=== PATIENT | male | born 2000 | race African-American/Black ===

== ENCOUNTER 2023-06-17 06:16 | Inpatient (IN) | payer BC, OTHER, SELFPAY ==
[2023-06-17] MEDS ORDERED: LEVALBUTEROL 1.25 MG/3 ML NEB ONE (06:45)
[2023-06-17] MEDS ORDERED: IPRATROPIUM BROM 0.5MG/2.5ML ONE (06:45)
[2023-06-17] MEDS ORDERED: PIPERACIL/TAZO 3.375 GM VIAL IV ONE (06:45)
[2023-06-17] MEDS ORDERED: NA CHLORIDE 0.9% 2,000 ML ONE (06:45)
[2023-06-17] MEDS ORDERED: NA CHLORIDE 0.9% 100 ML ONE (06:45)
[2023-06-17 06:57] LABS: Absolute Lymphocytes (CBC) 2.3 K/uL (0.7-4.9); Hematocrit 47.7 % (39.6-49.0); Lymphocytes % 29.4 % (15.3-44.8); MPV 8.5 fL (7.6-11.3); Platelets 184 thou/uL (152-406); RBC Red Blood Cell Count 5.81 M/uL (4.33-5.43)
[2023-06-17 07:01] LABS: Protime INR 1.05
--- NOTE | 2023-06-17 07:09 | EDPHYS ---
Physician Documentation [facility] Name: Darling Pang Age: 23 yrs Sex: Male : 2000 Arrival Date: 06/17/2023 Time: 06:16 Bed 3 Private MD: ED Physician Cory Siu HPI: 06/17 06:56 This 23 yrs old Black Male presents to ER via EMS with complaints of od, unresponsive, jimi aspiration. 06:56 The patient has shortness of breath at rest, with light activity. Onset: The jimi symptoms/episode began/occurred just prior to arrival. Duration: The symptoms are continuous, and are steadily getting worse. The patient's shortness of breath is aggravated by coughing. The patient presents to the emergency department with a possible overdose, found unresponsive, narcan. Context: Method: unk, Time: the patient's OD/poisoning occurred at an unknown time, Extent: unknown. Associated signs and symptoms: Pertinent positives: shortness of breath. Severity of symptoms: in the emergency department the symptoms have improved moderately. percocets , aspiration. The patient presents with confusion, disorientation, trouble concentrating. Historical: - Allergies: 06:27 No Known Allergies; lg3 - Home Meds: 06:27 None [Active]; lg3 - PMHx: 06:27 None; lg3 - PSHx: 06:27 None; lg3 - Immunization history:: Adult Immunizations up to date. - Social history:: Smoking status: Patient denies any tobacco usage or history of. Patient uses alcohol, occasionally. Patient/guardian denies using street drugs. - Family history:: not pertinent. ROS: 06:56 Constitutional: Negative for fever, chills, and weight loss, Eyes: Negative for injury, jimi pain, redness, and discharge, ENT: Negative for injury, pain, and discharge, Neck: Negative for injury, pain, and swelling, Cardiovascular: Negative for chest pain, palpitations, and edema, Abdomen/GI: Negative for abdominal pain, nausea, vomiting, diarrhea, and constipation, Back: Negative for injury and pain, : Negative for injury, bleeding, discharge, and swelling, MS/Extremity: Negative for injury and deformity, Skin: Negative for injury, rash, and discoloration, Neuro: Negative for headache, weakness, numbness, tingling, and seizure. 06:56 Respiratory: Positive for cough, dyspnea on exertion, pleurisy, shortness of breath. Exam: 06:56 Constitutional: This is a well developed, well nourished patient who is awake, alert, jimi and in no acute distress. Head/Face: Normocephalic, atraumatic. Eyes: Pupils equal round and reactive to light, extra-ocular motions intact. Lids and lashes normal. Conjunctiva and sclera are non-icteric and not injected. Cornea within normal limits. Periorbital areas with no swelling, redness, or edema. ENT: Nares patent. No nasal discharge, no septal abnormalities noted. Tympanic membranes are normal and external auditory canals are clear. Oropharynx with no redness, swelling, or masses, exudates, or evidence of obstruction, uvula midline. Mucous membranes moist. Neck: Trachea midline, no thyromegaly or masses palpated, and no cervical lymphadenopathy. Supple, full range of motion without nuchal rigidity, or vertebral point tenderness. No Meningismus. Chest/axilla: Normal chest wall appearance and motion. Nontender with no deformity. No lesions are appreciated. Cardiovascular: Regular rate and rhythm with a normal S1 and S2. No gallops, murmurs, or rubs. Normal PMI, no JVD. No pulse deficits. Abdomen/GI: Soft, non-tender, with normal bowel sounds. No distension or tympany. No guarding or rebound. No evidence of tenderness throughout. Back: No spinal tenderness. No costovertebral tenderness. Full range of motion. Male : Normal genitalia with no discharge or lesions. Skin: Warm, dry with normal turgor. Normal color with no rashes, no lesions, and no evidence of cellulitis. MS/ Extremity: Pulses equal, no cyanosis. Neurovascular intact. Full, normal range of motion. Neuro: Awake and alert, GCS 15, oriented to person, place, time, and situation. Cranial nerves II-XII grossly intact. Motor strength 5/5 in all extremities. Sensory grossly intact. Cerebellar exam normal. Normal gait. Psych: Awake, alert, with orientation to person, place and time. Behavior, mood, and affect are within normal limits. 06:56 ECG was reviewed by the Attending Physician. 06:56 Respiratory: the patient does not display signs of respiratory distress, Respirations: normal, no acute changes, Breath sounds: decreased breath sounds, rhonchi, that are moderate, are heard in the left posterior upper lobe, right posterior upper lobe and left posterior lower lobe. Vital Signs: 06:19 BP 133 / 94; Pulse 107; Resp 18; Temp 97.4(O); Pulse Ox 82% on R/A; Weight 77.11 kg lg3 (R); Height 5 ft. 8 in. (R); 06:57 BP 134 / 90; Pulse 102; Resp 16; Pulse Ox 99% on Nebulizer Mask; kd3 07:31 Pulse 115; Resp 20; Temp 98.6(O); Pulse Ox 90% on 4 lpm NC; Pain 8/10; ss 07:41 Pulse Ox 95% on 4 lpm NC; ss 06:19 Body Mass Index 25.85 (77.11 kg, 172.72 cm) lg3 07:31 Pain Scale: Adult ss MDM: 06:22 Patient medically screened. [facility] 07:03 Antibiotic administration: zosyn. Differential diagnosis: Ingestion/exposure to jimi percocets hypoglycemia, closed head injury. Differential Diagnosis altered mental status, sepsis, flu. Differential Diagnosis: CVA, electrolyte abnormality, alcohol intoxication, hypoglycemia, intracranial bleed, overdose. Immunization status:. Data reviewed: vital signs, nurses notes, EMS record, lab test result(s), EKG, radiologic studies, plain films. Consideration of Admission/Observation Patient was admitted/placed on observation. Escalation of care including admission/observation considered. I considered the following discharge prescriptions or medication management in the emergency department Medications were administered in the Emergency Department. See MAR. Independent interpretation of the following test(s) in the Emergency Department EKG: See my EKG interpretation above. Test considered but Not performed: CT: no ct chest. Historians other than the Patient: EMS: ems well informed. Care significantly affected by the following chronic conditions: substance abuse. 06/17 06:24 Order name: Acetaminophen; Complete Time: 07:51 jimi 06/17 06:24 Order name: Basic Metabolic Panel; Complete Time: 07:51 jimi 06/17 06:24 Order name: CBC with Diff; Complete Time: 07:51 jimi 06/17 06:24 Order name: ETOH Level; Complete Time: 07: jimi 06/17 06:24 Order name: Hepatic Function; Complete Time: 07:51 jimi 06/17 06:24 Order name: PT-INR; Complete Time: 07:51 [facility] 06/17 06:24 Order name: Ptt, Activated; Complete Time: 07:51 [facility] 06/17 06:24 Order name: Salicylate; Complete Time: 07:51 [facility] 06/17 06:24 Order name: Urinalysis w/ reflexes 06/17 06:24 Order name: Urine Drug Screen 06/17 06:24 Order name: Blood Culture Adult (2) 06/17 06:24 Order name: Lactate w/ 2H reflex if indic.; Complete Time: 07:51 [facility] 06/17 07:19 Order name: CBC with Automated Diff EDMS 06/17 07:19 Order name: CBC with Automated Diff EDMS 06/17 07:19 Order name: Comprehensive Metabolic Panel EDMS 06/17 07:19 Order name: Comprehensive Metabolic Panel EDMS 06/17 07:20 Order name: Procalcitonin EDMS 06/17 07:20 Order name: CBC with Automated Diff EDMS 06/17 12:37 Order name: Lactate Sepsis 2 HR Follow-up EDMS 06/17 06:24 Order name: Chest Single View XRAY; Complete Time: 07:51 [facility] 06/17 06:52 Order name: CT Head Brain wo Cont; Complete Time: 07:51 [facility] 06/17 09:52 Order name: CT EDMS 06/17 06:24 Order name: EKG; Complete Time: 06:24 [facility] 06/17 07:19 Order name: Regular EDMS 06/17 06:24 Order name: EKG - Nurse/Tech; Complete Time: 06:50 [facility] 06/17 06:24 Order name: IV Saline Lock; Complete Time: 06:39 [facility] 06/17 06:24 Order name: Labs collected and sent; Complete Time: 06:39 [facility] 06/17 06:24 Order name: Suicide Screening ([place]); Complete Time: 06:39 [facility] 06/17 06:51 Order name: Misc. Order: hob at 60; Complete Time: 06:56 [facility] EC:56 Rate is 92 beats/min. Rhythm is regular. QRS [place] is Normal. [place] interval is normal. QRS jimi interval is normal. QT interval is normal. No Q waves. T waves are Normal. No ST changes noted. Clinical impression: NSR w/ Non-specific ST/T Changes. Interpreted by me. Reviewed by me. Administered Medications: 06:49 Drug: Levalbuterol Inhalation 1.25 mg Route: Inhalation; lg3 06:49 Drug: Ipratropium Inhalation Aerosol 0.5 mg Route: Inhalation; lg3 06:49 Drug: NS 0.9% IV 1000 ml Route: IV; Rate: 1 bolus; Site: left antecubital; lg3 06:50 Drug: NS 0.9% IV 1000 ml Route: IV; Rate: 1 bolus; Site: left antecubital; lg3 06:50 Drug: Piperacillin-Tazobactam IVPB 3.375 grams Route: IVPB; Infused Over: 60 mins; lg3 Site: left antecubital; 08:14 Drug: Potassium PO Effervescent Tablet 25 mEq Route: PO; Disposition Summary: 06/17/23 07:09 Hospitalization Ordered Hospitalization Status: Inpatient Admission jimi Provider: Ladonna Lopez cha Location: Telemetry/MedSurg (Inpatient) jimi Condition: Fair jimi Problem: new jimi Symptoms: have improved jimi Bed/Room Type: Standard jimi Room Assignment: 425(06/17/23 09:44) eb Diagnosis - Hypoxemia jimi - Pneumonia due to other specified bacteria - aspiration jimi - Abuse of other non-psychoactive substances jimi - Acute respiratory failure with hypoxia jimi - Hypokalemia jimi Forms: - Medication Reconciliation Form jimi - SBAR form jimi Signatures: Dispatcher [employer] EDCory Melvin MD MD cha Blanchard, Shelby, RN RN Sofia Bran Lacie RN RN lg3 Corrections: (The following items were deleted from the chart) 09:44 07:09 jimi eb
--- NOTE | 2023-06-17 07:09 | ER ---
Nurse's Notes [facility] Name: Darling Pang Age: 23 yrs Sex: Male : 2000 Arrival Date: 06/17/2023 Time: 06:16 Bed 3 Private MD: Diagnosis: Hypoxemia;Pneumonia due to other specified bacteria-aspiration;Abuse of other non-psychoactive substances;Acute respiratory failure with hypoxia;Hypokalemia Presentation: 06/17 06:19 Chief complaint: EMS states: staying with friend. friend woke up at 0530 and found PT lg3 on floor unresponsive and not breathing. Called 911. police administered 4MG Narcan on scene. pt became arousable within 3 minutes. on EMS arrival to scene, Pt presented with snoring respirations, pinpoint pupils and diaphoretic. Pt presents to ED AAOx4 with no recollection of event. denies any drug use. Coronavirus screen: Client denies travel out of the [place] in the last 14 days. At this time, the client does not indicate any symptoms associated with coronavirus-19. Ebola Screen: No symptoms or risks identified at this time. Initial Sepsis Screen: Does the patient meet any 2 criteria? No. Patient's initial sepsis screen is negative. Does the patient have a suspected source of infection? No. Patient's initial sepsis screen is negative. Risk Assessment: Do you want to hurt yourself or someone else? Patient reports no desire to harm self or others. Onset of symptoms is unknown. 06:19 Method Of Arrival: EMS: [facility] lg3 06:19 Acuity: JESUS 2 lg3 Triage Assessment: 06:27 General: Appears in no apparent distress. uncomfortable, Behavior is cooperative, flat. lg3 Pain: Denies pain. EENT: No deficits noted. No signs and/or symptoms were reported regarding the EENT system. Neuro: Sullivan Agitation-Sedation Scale (RASS): -1 Drowsy Level of Consciousness is awake, obeys commands, Oriented to person, place. Cardiovascular: No deficits noted. Denies chest pain, shortness of breath, Capillary refill < 3 seconds Clubbing of nail beds is absent JVD is absent. Respiratory: Airway is patent Respiratory pattern is regular, symmetrical, Breath sounds with crackles bilaterally. GI: No deficits noted. No signs and/or symptoms were reported involving the gastrointestinal system. Abdomen is flat, non-distended. : No deficits noted. No signs and/or symptoms were reported regarding the genitourinary system. Derm: Skin is intact, is healthy with good turgor, Skin is diaphoretic, Skin is normal, Skin temperature is warm. Musculoskeletal: No deficits noted. No signs and/or symptoms reported regarding the musculoskeletal system. Circulation, motion, and sensation intact. Range of motion: intact in all extremities. Historical: - Allergies: 06:27 No Known Allergies; lg3 - Home Meds: 06:27 None [Active]; lg3 - PMHx: 06:27 None; lg3 - PSHx: 06:27 None; lg3 - Immunization history:: Adult Immunizations up to date. - Social history:: Smoking status: Patient denies any tobacco usage or history of. Patient uses alcohol, occasionally. Patient/guardian denies using street drugs. - Family history:: not pertinent. Screenin:29 [facility] ED Fall Risk Assessment (Adult) History of falling in the last 3 months, lg3 including since admission No falls in past 3 months (0 pts). Abuse screen: Denies threats or abuse. Denies injuries from another. Nutritional screening: No deficits noted. Tuberculosis screening: No symptoms or risk factors identified. Assessment: 06:29 General: see triage assessment . lg3 06:50 General: person of contact: Ayse- Girlfriend [phone]. lg3 07:16 Reassessment: Pt to CT at this time VIA stretcher. NAD at this time. Pt is has phone in ss his hand, texting. Respiratory: Airway is patent Respiratory effort is even, unlabored, Respiratory pattern is regular, symmetrical. Derm: Skin is pink, warm \T\ dry. normal. 07:32 General: Appears uncomfortable, Behavior is anxious. Pain: Complains of pain in chest ss Pain currently is 8 out of 10 on a pain scale. Is continuous. Neuro: Level of Consciousness is awake, alert, obeys commands, Oriented to person, place, time, situation. Cardiovascular: Capillary refill < 3 seconds is brisk in bilateral fingers. Respiratory: Airway is patent Respiratory effort is even, unlabored, Respiratory pattern is regular, symmetrical, Breath sounds with crackles in left posterior lower lobe and right posterior lower lobe. GI: Patient currently denies abdominal pain, nausea. 07:41 Reassessment: Educated patient on importance of coughing and deep breathing. Pt ss verbalizes understanding. O2 improved after. Vital Signs: 06:19 BP 133 / 94; Pulse 107; Resp 18; Temp 97.4(O); Pulse Ox 82% on R/A; Weight 77.11 kg lg3 (R); Height 5 ft. 8 in. (R); 06:57 BP 134 / 90; Pulse 102; Resp 16; Pulse Ox 99% on Nebulizer Mask; kd3 07:31 Pulse 115; Resp 20; Temp 98.6(O); Pulse Ox 90% on 4 lpm NC; Pain 8/10; ss 07:41 Pulse Ox 95% on 4 lpm NC; ss 06:19 Body Mass Index 25.85 (77.11 kg, 172.72 cm) lg3 07:31 Pain Scale: Adult ss ED Course: 06:19 Patient arrived in ED. lg3 06:19 Katie Cho RN is Primary Nurse. lg3 06:22 Cory Siu MD is Attending Physician. [facility] 06:27 Triage completed. lg3 06:27 Arm band placed on right wrist. lg3 06:29 Patient has correct armband on for positive identification. Placed in gown. Bed in low lg3 position. Call light in reach. Side rails up X2. Client placed on continuous cardiac and pulse oximetry monitoring. NIBP monitoring applied. panel monitor on. 06:29 Maintain EMS IV. Dressing intact. Good blood return noted. Site clean \T\ dry. Gauge \T\ lg 3 site: 18 LAC. Oxygen administration via non-rebreather mask \T\ 15L/min Response to oxygen therapy: symptoms improved. 06:31 Inserted saline lock: 20 gauge in right antecubital area, using aseptic technique. kd3 Blood collected. 06:39 Lactate w/ 2H reflex if indic. Sent. lg3 06:39 Blood Culture Adult (2) Sent. lg3 06:39 Acetaminophen Sent. lg3 06:39 Basic Metabolic Panel Sent. lg3 06:39 CBC with Diff Sent. lg3 06:39 ETOH Level Sent. lg3 06:39 Hepatic Function Sent. lg3 06:39 PT-INR Sent. lg3 06:39 Ptt, Activated Sent. lg3 06:39 Salicylate Sent. lg3 06:47 Chest Single View XRAY In Process Unspecified. EDMS 06:56 Lactate w/ 2H reflex if indic. Sent. kd3 06:56 Blood Culture Adult (2) Sent. kd3 06:56 Acetaminophen Sent. kd3 06:56 Basic Metabolic Panel Sent. kd3 06:56 CBC with Diff Sent. kd3 06:56 ETOH Level Sent. kd3 06:56 Hepatic Function Sent. kd3 06:56 PT-INR Sent. kd3 06:56 Ptt, Activated Sent. kd3 06:56 Salicylate Sent. kd3 07:06 Ladonna Lopez MD is Hospitalizing Provider. jimi 07:29 CT Head Brain wo Cont In Process Unspecified. EDMS 07:32 No provider procedures requiring assistance completed. Patient admitted, IV remains in ss place. Administered Medications: 06:49 Drug: Levalbuterol Inhalation 1.25 mg Route: Inhalation; lg3 06:49 Drug: Ipratropium Inhalation Aerosol 0.5 mg Route: Inhalation; lg3 06:49 Drug: NS 0.9% IV 1000 ml Route: IV; Rate: 1 bolus; Site: left antecubital; lg3 06:50 Drug: NS 0.9% IV 1000 ml Route: IV; Rate: 1 bolus; Site: left antecubital; lg3 06:50 Drug: Piperacillin-Tazobactam IVPB 3.375 grams Route: IVPB; Infused Over: 60 mins; lg3 Site: left antecubital; 08:14 Drug: Potassium PO Effervescent Tablet 25 mEq Route: PO; ss Medication: 06:57 VIS not applicable for this client. kd3 Outcome: 07:09 Decision to Hospitalize by Provider. jimi 07:32 Instructed on the need for admit. ss 10:30 Admitted to ER Hold. Please see [facility] for further documentation. ss 10:30 Condition: good 14:35 Patient left the ED. ss Signatures: Dispatcher [employer] EDCory Melvin MD MD cha Blanchard, Shelby, RN RN Katie Mckeon, RN RN lg3 Re Agosto RN RN kd3
[2023-06-17 07:15] LABS: ALT/SGPT 29 U/L (16-61); AST/SGOT 15 U/L (15-37); Albumin 4.5 g/dL (3.4-5.0); Alkaline Phosphatase 77 U/L (45-117); BUN Blood Urea Nitrogen 12 mg/dL (7-18); Bicarbonate 28 mEq/L (21-32); Bilirubin Direct 0.2 mg/dL (0-0.2); Bilirubin Indirect, Calculated 0.7 mg/dL (0.2-0.8); Bilirubin Total 0.9 mg/dL (0.2-1.0); Glomerular Filtration Rate 86 ml/min (=/>90); Glucose Level 147 mg/dL (74-106); Potassium 3.2 mEq/L (3.5-5.1); Protein, Total 8.3 g/dL (6.4-8.2); Sodium Level 137 mEq/L (136-145)
[2023-06-17] MEDS ORDERED: ACETAMINOPHEN 500 MG TAB PO PRN (07:15)
[2023-06-17] MEDS ORDERED: ONDANSETRON 4 MG/2 ML VIAL IV PRN (07:15)
[2023-06-17] MEDS ORDERED: ALBUTEROL 2.5 MG/3 ML NEB SOL NEB PRN (07:17)
--- NOTE | 2023-06-17 07:23 | RAD REPORT ---
EXAM DESCRIPTION: RAD - Chest Single View - 06/17/2023 6:38 am CLINICAL HISTORY: Cough;Congestion;Dyspnea;PE Chest pain. COMPARISON: No comparisons FINDINGS: Portable technique limits examination quality. Mild bilateral pulmonary opacities are noted with arm greater on the left and suspicious for infectio n, suggest viral pneumonitis. The heart is normal in size. No displaced fractures.
--- NOTE | 2023-06-17 07:25 | P.HP ---
Certification for Inpatient Patient admitted to: Observation With expected LOS: <2 Midnights Patient will require the following post-hospital care: None Practitioner: I am a practitioner with admitting privileges, knowledge of patient current condition, hospital course, and medical plan of care. Services: Services provided to patient in accordance with Admission requirements found in Title 42 Section 412.3 of the Code of Federal Regulations Patient History Date of Service: 06/17/23 Reason for admission: Aspiration pneumonia History of Present Illness: Patient is a 23-year-old gentleman who came to the hospital after he was found unresponsive on the floor by his roommate. Patient apparently had taken a Percocet to get high and was unresponsive. Pt was given Narcan by EMS and he woke up. Patient was brought to the emergency room for further evaluation. Patient was seen in the ER and patient is still feeling a little short of breath. The emergency room physician wanted me observe him for worsening dyspnea. - Past Medical/Surgical History Past Medical History: Patient denies medical history Past Surgical History: Patient denies surgical history - Family History Father Family History: Reviewed- Non-Contributory - Social History Smoking Status: Former smoker Alcohol use: No CD- Drugs: No Review of Systems 10-point ROS is otherwise unremarkable Physical Examination - Vital Signs Temperature: 98 F Blood Pressure: 120/80 Pulse: 80 Respirations: 18 Pulse Ox (%): 98 - Physical Exam General: Alert, In no apparent distress, Oriented x3 HEENT: Atraumatic, PERRLA, Mucous membr. moist/pink, EOMI, Sclerae nonicteric Neck: Supple, 2+ carotid pulse no bruit, No LAD, Without JVD or thyroid abnormality Respiratory: Clear to auscultation bilaterally, Normal air movement Cardiovascular: Regular rate/rhythm, Normal S1 S2, No murmurs Gastrointestinal: Normal bowel sounds, Soft and benign, Non-distended, No tenderness Musculoskeletal: No clubbing, No swelling, No tenderness Integumentary: No rashes Neurological: Normal gait, Normal speech, Normal strength at 5/5 x4 extr, Normal tone, Sensation intact, Cranial nerves 3-12 intact, Normal affect Lymphatics: No axilla or inguinal lymphadenopathy - Studies Laboratory Data (last 24 hrs) 06/17/23 06/17/23 06/17/23 06:40 06:40 06:40 WBC 7.70 Hgb 15.2 Hct 47.7 Plt Count 184 PT 11.5 INR 1.05 APTT 28.2 Sodium 137 Potassium 3.2 L BUN 12 Creatinine 1.22 Glucose 147 H Total Bilirubin 0.9 AST 15 ALT 29 Alkaline Phosphatase 77 Assessment & Plan - Problems (Diagnosis) (1) Aspiration pneumonia Current Visit: Yes Status: Acute (2) Hypoxemia Current Visit: Yes Status: Acute - Plan Plan: 1. Continue with IV antibiotics 2. Awaiting sputum and blood culture 3. Repeat chest x-ray 4. CT scan of the chest if pneumonia is not improving- 5. Appreciate pulmonary consultation 6. Continue with nebs as needed 7. O2 per protocol 8. Continue with gentle hydration 9. Repeat labs 10. GI and DVT prophylaxis Discharge Plan: Home Plan to discharge in: Greater than 2 days - Advance Directives Does patient have a Living Will: No Does patient have a Durable POA for Healthcare: No - Code Status/Comfort Care Code Status Assessed: Yes Code Status: Full Code Critical Care: No Time Spent Managing PTS Care (In Minutes): 45
--- NOTE | 2023-06-17 07:34 | RAD REPORT ---
EXAM DESCRIPTION: CT - Head Brain Wo Cont - 06/17/2023 7:27 am CLINICAL HISTORY: CONFUSED Headache, drowsiness COMPARISON: No comparisons TECHNIQUE: All CT scans are performed using dose optimization technique as appropriate and may inclu de automated exposure control or mA/KV adjustment according to patient size. FINDINGS: No intracranial hemorrhage, hydrocephalus or extra-axial fluid collection.No areas of brai n edema or evidence of midline shift. The paranasal sinuses and mastoids are clear. The calvarium is intact. IMPRESSION: No acute intracranial abnormality.
[2023-06-17 08:09] LABS: Specific Gravity 1.011 (1.005-1.030); Urine Bilirubin NEGATIVE (Negative); Urine Blood Negative (Negative); Urine Clarity Clear (Clear); Urine Color Colorless (Yellow); Urine Glucose NEGATIVE (Negative); Urine Protein NEGATIVE (Negative); Urine Urobilinogen Normal (Normal)
[2023-06-17] MEDS ORDERED: POTASSIUM 25 MEQ EFFERV TAB ONE (08:19)
[2023-06-17 08:21] LABS: Barbiturates NEGATIVE (NEGATIVE); Benzodiazepines POSITIVE (NEGATIVE); Cocaine POSITIVE (NEGATIVE); METHAMPHETAM NEGATIVE (NEGATIVE); Methadone NEGATIVE (NEGATIVE); Opiates NEGATIVE (NEGATIVE); Phencyclidine NEGATIVE (NEGATIVE); THC Cannibis POSITIVE (NEGATIVE)
[2023-06-17] MEDS: PIPER TAZO 3.375 GM in NA CHLORIDE 0.9% 100 ML IV SCH ×2 (09:00→17:06)
--- NOTE | 2023-06-17 09:51 | RAD REPORT ---
EXAM DESCRIPTION: CT - Thorax W/ Con CLINICAL HISTORY: Chest pain pneumonia COMPARISON: Chest Single View dated 06/17/2023 FINDINGS: Moderate bilateral airspace opacity is present in a relatively diffuse fashion, but greate st in the upper lobes. This is a nonspecific pattern by can be seen in alveolar pulmonary edema or mo derate to severe bilateral pneumonia pattern. No pleural thickening or pleural effusion. No pneumotho rax. No axillary, mediastinal or hilar adenopathy. No concerning bony finding. No gross upper abdominal finding. All CT scans are performed using dose optimization technique as appropriate and may include automated exposure control or mA/KV adjustment according to patient size. IMPRESSION: Moderate bilateral pulmonary opacities are present likely representing alveolar pulmonar y edema or moderate to severe bilateral pneumonia.
[2023-06-17] MEDS ORDERED: NA CHLORIDE 0.9% 1,000 ML ONE (09:55)
[2023-06-17] MEDS: NA CHLORIDE 0.9% 1,000 ML IV SCH ×2 (10:49→17:06)
[2023-06-17 11:05] LABS: Absolute Lymphocytes (CBC) 1.2 K/uL (0.7-4.9); Hematocrit 41.2 % (39.6-49.0); Lymphocytes % 8.8 % (15.3-44.8); MCV 81.7 fL (80-100); MPV 8.5 fL (7.6-11.3); Platelets 170 thou/uL (152-406); RBC Red Blood Cell Count 5.05 M/uL (4.33-5.43)
[2023-06-17] MEDS: METHYLPREDNISOLONE 40 MG INJ IV SCH ×2 (12:00→17:06)
[2023-06-17 15:00] VITALS: BMI 25.8
[2023-06-18] MEDS: PIPER TAZO 3.375 GM in NA CHLORIDE 0.9% 100 ML IV SCH ×3 (00:34→16:33)
[2023-06-18] MEDS: METHYLPREDNISOLONE 40 MG INJ IV SCH (00:36)
[2023-06-18] MEDS ORDERED: NA CHLORIDE 0.9% 100 ML ONE (00:40)
[2023-06-18 06:40] LABS: Hematocrit 45.1 % (39.6-49.0); Lymphocytes % 10.3 % (15.3-44.8); MCV 81.8 fL (80-100); MPV 8.9 fL (7.6-11.3); Platelets 182 thou/uL (152-406); RBC Red Blood Cell Count 5.52 M/uL (4.33-5.43)
[2023-06-18 06:57] LABS: Bilirubin Total 0.9 mg/dL (0.2-1.0); Potassium 4.4 mEq/L (3.5-5.1); Protein, Total 7.7 g/dL (6.4-8.2)
[2023-06-18] MEDS ORDERED: METHYLPREDNISOLONE 125 MG INJ IV SCH (12:00)
[2023-06-18] MEDS: NA CHLORIDE 0.9% 1,000 ML IV SCH ×2 (14:00→20:23)
[2023-06-18] MEDS ORDERED: ALBUTEROL 2.5 MG/3 ML NEB SOL NEB PRN (16:00)
[2023-06-18] MEDS: predniSONE 20 MG TAB PO SCH (20:23)
[2023-06-19] MEDS: NA CHLORIDE 0.9% 1,000 ML IV SCH
[2023-06-19] MEDS: PIPER TAZO 3.375 GM in NA CHLORIDE 0.9% 100 ML IV SCH ×2 (00:51→09:08)
[2023-06-19 08:46] VITALS: O2SAT 96
[2023-06-19] MEDS: predniSONE 20 MG TAB PO SCH (09:07)
--- NOTE | 2023-06-19 11:32 | RAD REPORT ---
EXAM DESCRIPTION: RADChest Single View06/19/2023 10:38 am CLINICAL HISTORY: PNEUMONIA COMPARISON: Chest Single View dated 06/17/2023 TECHNIQUE: Portable AP view of the chest. FINDINGS: The lungs are clear. No pneumothorax or effusion. The cardiomediastinal contours are unrem arkable. IMPRESSION: No acute cardiopulmonary process.
--- NOTE | 2023-06-19 11:43 | P.PN ---
Subjective Date of Service: 06/18/23 Subjective: No new changes, No C/O voiced, Improving Review of Systems 10-point ROS is otherwise unremarkable Physical Examination - Vital Signs Temperature: 98.3 F Blood Pressure: 98/56 Pulse: 74 Respirations: 14 Pulse Ox (%): 96 - Physical Exam General: Alert, In no apparent distress, Oriented x3 Respiratory: Clear to auscultation bilaterally, Normal air movement Cardiovascular: Regular rate/rhythm, Normal S1 S2 Gastrointestinal: Normal bowel sounds, Soft and benign, Non-distended, No tenderness Musculoskeletal: No clubbing, No swelling, No tenderness Neurological: Sensation intact, Cranial nerves 3-12 intact - Studies Medications List Reviewed: Yes Assessment & Plan - Problems (Diagnosis) (1) Aspiration pneumonia Current Visit: Yes Status: Acute (2) Hypoxemia Current Visit: Yes Status: Acute - Plan Plan: 1. Continue with IV antibiotics 2. Awaiting sputum and blood culture 3. Repeat chest x-ray 4. CT scan of the chest if pneumonia is not improving- 5. Appreciate pulmonary consultation 6. Continue with nebs as needed 7. O2 per protocol 8. Continue with gentle hydration 9. Repeat labs 10. GI and DVT prophylaxis - Advance Directives Does patient have a Living Will: No Does patient have a Durable POA for Healthcare: No - Code Status/Comfort Care Code Status: Full Code
--- NOTE | 2023-06-19 11:47 | P.DS ---
Discharge Date: 06/19/23 Disposition: ROUTINE DISCHARGE Discharge Condition: GOOD Reason for Admission: Aspiration pneumonia - Problems (1) Aspiration pneumonia Current Visit: Yes Status: Acute (2) Hypoxemia Current Visit: Yes Status: Acute Brief History of Present Illness: Patient is a 23-year-old gentleman who came to the hospital after he was found unresponsive on the floor by his roommate. Patient apparently had taken a Percocet to get high and was unresponsive. Pt was given Narcan by EMS and he wo ke up. Patient was brought to the emergency room for further evaluation. Patient was seen in the ER and patient is still feeling a little short of breath. The emergency room physician wanted me observe him for worsening dyspnea. Hospital Course: Patient is doing well clinically. Chest x-ray was completed and patient is doing well. Continue with antibiotics and steroids. Patient was advised to refrain from substance abuse. At this time patient is stable for discharge with outpatient follow-up. Vital Signs/Physical Exam: Temp Pulse Resp BP Pulse Ox 98.3 F 74 14 98/56 L 96 06/19/23 11:43 06/19/23 11:43 06/19/23 11:43 06/19/23 11:43 06/19/23 11:43 General: Alert, In no apparent distress, Oriented x3 Laboratory Data at Discharge: WBC 10.10 thou/uL (4.3-10.9) 06/18/23 06:10 Hgb 14.3 g/dL (13.6-17.9) D 06/18/23 06:10 Hct 45.1 % (39.6-49.0) 06/18/23 06:10 Plt Count 182 thou/uL (152-406) 06/18/23 06:10 PT 11.5 SECONDS (9.5-12.5) 06/17/23 06:40 INR 1.05 06/17/23 06:40 APTT 28.2 SECONDS (24.3-36.9) 06/17/23 06:40 Sodium 137 mEq/L (136-145) 06/18/23 06:10 Potassium 4.4 mEq/L (3.5-5.1) D 06/18/23 06:10 BUN 10 mg/dL (7-18) 06/18/23 06:10 Creatinine 1.07 mg/dL (0.70-1.30) 06/18/23 06:10 Glucose 143 mg/dL (74-106) H 06/18/23 06:10 Total Bilirubin 0.9 mg/dL (0.2-1.0) 06/18/23 06:10 AST 12 U/L (15-37) L 06/18/23 06:10 ALT 26 U/L (16-61) 06/18/23 06:10 Alkaline Phosphatase 66 U/L (45-117) 06/18/23 06:10 Home Medications: Amox/Clavulanate [Augmentin 875-125 Tab] 1 each PO BID #14 tab 06/19/23 predniSONE [Deltasone] 20 mg PO DAILY #5 tab 06/19/23 New Medications: Amox/Clavulanate [Augmentin 875-125 Tab] 1 each PO BID #14 tab predniSONE [Deltasone] 20 mg PO DAILY #5 tab Physician Discharge Instructions: -DC IV and DC home -Follow-up with PCP in 1 to 2 weeks -Please call Dr. Lopez at [phone] if any questions regarding hospital stay -Please call nursing station at [phone] if any nursing or medication questions -Return to the emergency room if symptoms worsen Diet: Regular Activity: Fall precautions Followup: Unknown,U [Primary Care Provider] - Time spent managing pt's care (in minutes): 35
[2023-06-19 12:21] VITALS: BP 133/66; TEMP 98.8
--- NOTE | 2023-06-20 15:37 | EKG ---
Test Date: 2023-06-17 Test Time: 06:52:45 Manager Produce: JASMEET MEASUREMENT RESULTS: Intervals: Rate: 92 MA: 150 QRSD: 94 QT: 342 QTc: 422 Hulen: P: 58 MA: 150 QRS: 40 T: 17 INTERPRETIVE STATEMENTS: Normal sinus rhythm with sinus arrhythmia Nonspecific T wave abnormality Abnormal ECG No previous ECG available for comparison Electronically Signed On 06-20-23 15:32:48 CDT by Arnav Kyle
== END 2023-06-19 13:50 | disposition home or self-care (01) ==
LOC: ER 06:16 → ERHOLD 07:15 → OBSVTOIN 07:15 → 4TH 14:26
PROVIDERS: ADMIT Hospitalist; ATTEND Hospitalist
CPT/HCPCS: 36415; 70450; 71045; 71260; 80048; 80053; 80076; 80143; 80179; 80307; 81003; 82077; 83605; 84145; 85025; 85610; 85730; 87040; 93005; 96374; 99285; J2543; J2920; J2930; J7030; J7512; J7614; J7644; Q9967